=== PATIENT | male | born 1960 | race Caucasian/White ===

== ENCOUNTER 2016-11-13 15:12 | Inpatient (IN) | payer MEDICAID, OTHER ==
[~2016-11-13] VITALS: Ht 154.9 cm; Wt 75.7 kg
[2016-11-13 15:27] VITALS: BP 157/94
--- NOTE | 2016-11-13 15:30 | NUR ---
PATIENT TO BED 7.
--- NOTE | 2016-11-13 15:40 | NUR ---
Patient sent to us by his PMD, patient states he has no medical HX, takes no meds, presents with extreemly distended abd, full body jaundice, denies any CP, but does have some SOB, denies smoking, stats he has an occasional alchoholic beverage. Patient is resting in bed at this time, sitting up with both bed rails up.
--- NOTE | 2016-11-13 15:50 | NUR ---
Dr. Chisholm at bedside
--- NOTE | 2016-11-13 16:25 | NUR ---
CALL OUT TO DR. AYDEN MEDEIROS
--- NOTE | 2016-11-13 17:04 | NUR ---
Pt report given to Ton. Transfer of care at this time.
--- NOTE | 2016-11-13 17:06 | NUR ---
Ultrasound at bedside
--- NOTE | 2016-11-13 17:12 | NUR ---
Notified Dr. Chisholm of critical lab Troponin 0.108
[2016-11-13] MEDS ORDERED: ECOTRIN 81 MG TABEC PO ONE (17:15)
[2016-11-13] MEDS ORDERED: ECOTRIN 81 MG TABEC PO SCH (17:30)
[2016-11-13] MEDS ORDERED: MORPHINE SULFATE 4 MG/ML SYR IVP PRN (17:40)
[2016-11-13] MEDS ORDERED: ACETAMINOPHEN 325 MG TAB PO PRN (17:40)
[2016-11-13] MEDS ORDERED: ONDANSETRON 4 MG/2 ML VIAL IVP PRN (17:40)
[2016-11-13] MEDS ORDERED: MORPHINE SULFATE 2 MG/ML SYR IVP PRN (17:40)
--- NOTE | 2016-11-13 17:45 | NUR ---
Patient transfered to [facility]
--- NOTE | 2016-11-13 17:45 | NUR ---
Ultrasound complted at bedside
[2016-11-13 18:00] VITALS: BP 143/81
--- NOTE | 2016-11-13 18:00 | NUR ---
RECEIVED PATIENT FROM ER WITH CHIEF COMPLAINING OF ABD AND BLE SWELLING. PATIENT APPEARED TO BE CALM, AWAKE AND RESTING WELL. AAOX4 ITALIAN SPEAKING. NO SIGN OF DISTRESS NOTED AT THIS TIME. PATIENT STATED FEELING MILD SOB. O2 SAT 98% ON ROOM AIR. VSS. INITIAL ASSESSMENT DONE. PATIENT SKIN INTACT. PATIENT HAS RASH TO BILATERAL GROIN. MRSA SWAB DONE. PATIENT DENIED ANY PAIN OR CHEST DISCOMFORT. PATIENT HAS +1 EDEMA TO BLE. ABD DISTENDED AND FIRM NOTED. PATIENT HAS IV 20G TO LEFT AC INTACT AND FLUSHED WELL. PLAN OF CARE, PAIN MANAGEMENT AND MEDICATION REGIMENTS DISCUSSED, PATIENT AND HIS VERBALIZED UNDERSTANDING. PATIENT AMBULATORY. CALL LIGHT WITHIN REACH. WILL CONTINUE TO MONITOR.
--- NOTE | 2016-11-13 18:30 | NUR ---
DR GRAY COVERED FOR DR GALLEGOS EXPLAINED TO PATIENT REGARDING CT OF CHEST WITH CONTRAST PROCEDURE TO RULE OUT PE AND ITS RISKS AND BENEFITS THROUGH TELEPHONE, PATIENT VERBALIZED UNDERSTANDING, NURSE IZAIAH SYED RN WITNESSED AT BEDSIDE. CONSENT FORM FOR CHEST CT WITH CONTRAST SIGNED BY PATIENT AND ER DR GAMBOA ALSO SIGNED THE CONSENT.
[2016-11-13] MEDS ORDERED: PHYTONADIONE 10 MG/ML AMP SUBQ SCH (18:55)
[2016-11-13] MEDS ORDERED: SPIRONOLACTONE 50 MG TAB PO SCH (18:55)
--- NOTE | 2016-11-13 19:18 | NUR ---
ENDORSED PATIENT CURRENT PLAN OF CARE TO NIGHT NURSE JAIRO LVN. PATIENT RESTING IN BED WITH NO SIGN OF DISTRESS NOTED. Addendum: 11/13/16 at 1918 by Ton Collins RN NURSE ACE BERTRAND INSTEAD OF NURSE JAIRO BERGER.
--- NOTE | 2016-11-13 19:30 | NUR ---
RECEIVED PT FROM RAUL BERTRAND PT [place] SPEAKER AAOX4 AMBULATORY ON TELEMETRY SR, HL ON LEFT AC PATENT ASCITIS ABD VERY DISTENDED, EDEMA3+ BLE RASH ON INGUINAL AREA AND INTER THIGH, DR Denis BURTON IS HERE AND SEE THE PT PT IS ORIENTED TO THE FLOOR CALL LIGHT WITHIN REACH, RELATIVES AT BED SIDE.
[2016-11-13 20:00] VITALS: BP 131/79
[2016-11-13] MEDS ORDERED: PNEUMOCOCCAL VACCINE 23 MCG/0.5 ML VIAL IMVAC SCH (20:00)
--- NOTE | 2016-11-13 22:00 | NUR ---
PT CAME BACK FOR CT ABD
[2016-11-13] MEDS: LACTULOSE 20 GM/30 ML UDC PO SCH (22:07)
[2016-11-14] VITALS (7 sets, daily range): BP systolic 93–135; BP diastolic 52–81
--- NOTE | 2016-11-14 | NUR ---
PT RESTING ON BED VOIDING WELL , REPOSITIONED ASCITS, ON TELEMETRY ST
[2016-11-14] MEDS: LORazepam 1 MG TAB PO SCH ×3 (00:03→12:26)
[2016-11-14] MEDS ORDERED: MILD SOAP AND WATER TP PRN (01:15)
[2016-11-14] MEDS ORDERED: INTERDRY CLOTH TP SCH (01:15)
--- NOTE | 2016-11-14 04:00 | NUR ---
SPONGE BATH GIVEN LINEN CHANGED, AMBULATES TO THE RESTROOM DENIES ANY PAIN ON TELE SR
--- NOTE | 2016-11-14 06:00 | NUR ---
PT SLEEPING ATIVAN NOT GIVEN , ON TELE SR NOT DISTRESS NOTED AT THIS TIME
--- NOTE | 2016-11-14 07:00 | NUR ---
PATIENT CURRENT PLAN OF CARE HAS BEEN REVIEWED WITH NURSE JIGNA BERGER.
--- NOTE | 2016-11-14 07:18 | NUR ---
ASSUMED CONTINUITY OF CARE. NO SIGNS AND SYMPTOMS OF ACUTE DISTRESS NOTICED. INITIAL ASSESSMENT DONE. FAMILY MEMBER -HOPE ADAN ON BEDSIDE. HOB ELEVATED. KEEP COMFORTABLE ON BED. EXPLAINED DIAGNOSIS, PLAN OF CARE, PAIN MANAGEMENT TEACHING, USE OF CALL LIGHT/BED/TV/BATHROOM. VERBALIZED UNDERSTANDING. CALL LIGHT WITHIN REACH.
--- NOTE | 2016-11-14 08:00 | NUR ---
Patient's Plan of Care was discussed and reviewed with FIELD MARKETING TEAM LEADER: JIGNA
[2016-11-14] MEDS ORDERED: ASPIRIN 81 MG TAB.CHEW PO SCH (09:00)
[2016-11-14] MEDS ORDERED: FUROSEMIDE 40 MG/4 ML VIAL IVP SCH (09:00)
[2016-11-14] MEDS ORDERED: INFLUENZA VIRUS VACCINE QUAD 0.5 ML SYR IMVAC SCH (09:00)
[2016-11-14] MEDS: LACTULOSE 20 GM/30 ML UDC PO SCH ×2 (09:09→21:09)
[2016-11-14] MEDS: POTASSIUM CHLORIDE 20% 40 MEQ/15 ML UDC GT SCH ×3 (09:09→17:27)
[2016-11-14] MEDS: PROPRANOLOL 20 MG TAB PO SCH ×3 (09:10→17:27)
[2016-11-14] MEDS: SPIRONOLACTONE 50 MG TAB PO SCH (09:11)
[2016-11-14] MEDS: THIAMINE 100 MG TAB PO SCH (09:11)
--- NOTE | 2016-11-14 09:13 | NUR ---
PATIENT HAS BEEN SCREENED AND CATEGORIZED MODERATE NUTRITION RISK. PATIENT WILL BE SEEN WITHIN 3-5 DAYS OF ADMISSION. 11/16/16-11/18/[address]
[2016-11-14] MEDS: FUROSEMIDE 40 MG/4 ML VIAL IVP SCH ×2 (09:30→17:42)
--- NOTE | 2016-11-14 12:30 | NUR ---
DR. FARIAS CAME, SEEN PT., AND CHECKED PT. CHART.
[2016-11-14] MEDS ORDERED: PHYTONADIONE 10 MG/ML AMP SUBQ SCH (12:45)
--- NOTE | 2016-11-14 14:15 | NUR ---
DR. GALLEGOS CAME, INFORMED OF PT. CRITICAL LAB RESULTS OF TROP 0.117 AND ABILIO DÍAZ WAS MADE AWARE AND NO ORDER RECEIVED.
--- NOTE | 2016-11-14 14:22 | NUR ---
USED NexSteppe WITH CONVERTIBLE SOFA BEDSPRING TESTER #[id number], EXPLAINED ABOUT DR. FARIAS ORDER OF US GUIDED PARACENTESIS AND ASKED FOR QUESTION OR CONCERN REGARDING PROCEDURE. PT. VERBALIZED UNDERSTANDING AND NO QUESTION OR CONCERN RECEIVED. INFORMED CHARGE NURSE KATARINA HANKINS.
[2016-11-14] MEDS ORDERED: NYSTATIN CRE 100 MU/GM 15 GM TUBE TP SCH (14:25)
[2016-11-14] MEDS ORDERED: LORazepam 2 MG/ML VIAL IM/IVP PRN (14:35)
--- NOTE | 2016-11-14 15:23 | NUR ---
FAXED REVIEW TO [facility] FAX#[phone] PH# JORGE [phone]
--- NOTE | 2016-11-14 17:20 | NUR ---
TEMP 99.2 TEMPORAL SCAN, BP 113/63, HR 67, RESP 18, O2 SAT 98% ON ROOM AIR. NO C/O PAIN. WILL GIVE SCHEDULE MEDICINE PER MD ORDER.
--- NOTE | 2016-11-14 19:16 | NUR ---
BEDSIDE REPORT GIVEN TO ZOFIA BELL -JERZY. IN STABLE CONDITION. ALSO ENDORSED ABOUT MD ORDER OF US GUIDED PARACENTESIS.
--- NOTE | 2016-11-14 19:20 | NUR ---
RECEIVED REPORT FROM ZO BERGER, PATIENT IS AAOX4 THAI SPEAKING, PATIENT IS RESTING IN BED, PATIENT HAS IV TO LAC #20 PATENT, PATIENT HAS DISTENDED ABDOMEN WITH BLE EDEMA NOTED. PATIENT HAS A PERINEAL RASH. DISCUSSED PLAN OF CARE WITH PATIENT, PATIENT VERBALIZED UNDERSTANDING. CALL LIGHT WITHIN REACH. WILL CONTINUE TO MONITOR.
--- NOTE | 2016-11-14 21:12 | NUR ---
PM MED GIVEN, PATIENT TOLERATED WELL,CALL LIGHT WITHIN REACH. WILL CONTINUE TO MONITOR.
--- NOTE | 2016-11-14 22:37 | NUR ---
PATIENT WAS NOT IN ROOM PER PRISON CLASSIFICATION COUNSELOR, OTHER PATIENT TO BED A SAID PATIENT WALKED OUT. PATIENT WAS FOUND TO BE TAKING A SHOWER. WILL CONTINUE TO MONITOR.
--- NOTE | 2016-11-14 22:57 | NUR ---
PATIENT OUT OF SHOWER, BACK IN ROOM, IV INTACT, PATIENT RECONNECTED TO TELE MONITOR. CALL LIGHT WITHIN REACH. WILL CONTINUE TO MONITOR.
[2016-11-15] VITALS: BP 107/62
--- NOTE | 2016-11-15 | NUR ---
PATIENT SLEEPING, NO SOB OR SIGN OF DISTRESS, CALL LIGHT WITHIN REACH. WILL CONTINUE TO MONITOR.
--- NOTE | 2016-11-15 01:08 | NUR ---
VITAL SIGNS STABLE, PATIENT RESTING, NO SOB OR SIGN OF DISTRESS, CALL LIGHT WITHIN REACH. WILL CONTINUE TO MONITOR.
--- NOTE | 2016-11-15 02:00 | NUR ---
PATIENT SLEEPING, NO SOB OR SIGN OF DISTRESS, CALL LIGHT WITHIN REACH. WILL CONTINUE TO MONITOR.
[2016-11-15 04:00] VITALS: BP 98/48
--- NOTE | 2016-11-15 04:26 | NUR ---
VITAL SIGNS STABLE, PATIENT SLEEPING NO SOB OR SIGN OF DISTRESS, CALL LIGHT WITHIN REACH. WILL CONTINUE TO MONITOR.
--- NOTE | 2016-11-15 06:09 | NUR ---
PATIENT SLEEPING, NO SOB OR SIGN OF DISTRESS, CALL LIGHT WITHIN REACH. WILL CONTINUE TO MONITOR.
--- NOTE | 2016-11-15 07:10 | NUR ---
ENDORSED PATIENT TO DAY VAULT CLERK AT BEDSIDE, PATIENT IN STABLE CONDITION
--- NOTE | 2016-11-15 07:11 | NUR ---
ASSUMED CONTINUITY OF CARE. NO SIGNS AND SYMPTOMS OF ACUTE DISTRESS NOTED. INITIAL ASSESSMENT DONE. HOB ELEVATED. KEEP COMFORTABLE ON BED. EXPLAINED DIAGNOSIS, PLAN OF CARE, PAIN MANAGEMENT TEACHING, USE OF CALL LIGHT/BED/TV/BATHROOM. VERBALIZED UNDERSTANDING. CALL LIGHT WITHIN REACH.
[2016-11-15 08:00] VITALS: BP 113/66
--- NOTE | 2016-11-15 08:00 | NUR ---
Patient's Plan of Care was discussed and reviewed with TISSUE PACKER: TRISTAN BROWN
--- NOTE | 2016-11-15 08:01 | NUR ---
CALLED WILL FROM RADIOLOGY REGARDING MD ORDER OF US GUIDED PARACENTESIS. PER WILL FROM RADIOLOGY NO AVAILABLE STAFF YET TO DO PROCEDURE. INFORMED CHARGE NURSE GRACE HANKINS.
[2016-11-15] MEDS ORDERED: PANTOPRAZOLE 40 MG INJ VIAL IVP SCH (09:00)
[2016-11-15] MEDS: THIAMINE 100 MG TAB PO SCH (09:12)
[2016-11-15] MEDS: POTASSIUM CHLORIDE 20% 40 MEQ/15 ML UDC GT SCH (09:12)
[2016-11-15] MEDS: LACTULOSE 20 GM/30 ML UDC PO SCH ×2 (09:12→20:20)
[2016-11-15] MEDS: SPIRONOLACTONE 50 MG TAB PO SCH ×2 (09:13→20:20)
[2016-11-15] MEDS: PROPRANOLOL 20 MG TAB PO SCH ×3 (09:13→17:00)
[2016-11-15] MEDS: FUROSEMIDE 40 MG/4 ML VIAL IVP SCH (09:45)
[2016-11-15 12:00] VITALS: BP 103/64
--- NOTE | 2016-11-15 12:05 | NUR ---
CM NOTE FAXED REVIEW TO [facility] FAX# [phone] ATTN: JORGE # [phone]
[2016-11-15] MEDS: POTASSIUM CHLORIDE 20% 40 MEQ/15 ML UDC PO SCH ×2 (13:02→17:28)
--- NOTE | 2016-11-15 13:10 | NUR ---
DR. RESENDEZ CAME FOR PT. US GUIDED PARACENTESIS. PT. RESTING ON BED COMFORTABLY.
--- NOTE | 2016-11-15 14:30 | NUR ---
INFORMED JHOAN MCKAY WHO WAS AT [facility] NURSE STATION AT THIS TIME OF US GUIDED PARACENTESIS OUTPUT OF 5.5 LITER.
[2016-11-15] MEDS ORDERED: ALBUMIN HUMAN 25% 50 ML IV SCH (15:00)
[2016-11-15] MEDS ORDERED: PHYTONADIONE 10 MG/ML AMP SUBQ SCH (15:22)
[2016-11-15 16:00] VITALS: BP 109/63
--- NOTE | 2016-11-15 19:13 | NUR ---
REPORT GIVEN TO ZOFIA HANKINS. IN STABLE CONDITION.
--- NOTE | 2016-11-15 19:15 | NUR ---
RECEIVED REPORT FROM ZO BERGER, PATIENT IS AAO X4, PATIENT RESTING IN BED WITH FAMILY MEMBER AT BEDSIDE. PATIENT IS ON ROOM AIR, PATIENT HAS IV TO LAC#20 PATENT AND INTACT SL, NOTED PATIENT HAS DISTENDED ABDOMEN AND BLE EDEMA WITH PITTING. PATIENT HAS BANDAGE TO LOWER RIGHT ABDOMEN S/P PARACENTESIS. PATIENT IS ON FLUID RESTRICTION OF 1.5L/DAY. DISCUSSED PLAN OF CARE WITH PATIENT, PATIENT VERBALIZED UNDERSTANDING, CALL LIGHT WITHIN REACH. WILL CONTINUE TO MONITOR.
[2016-11-15 20:00] VITALS: BP 108/64
[2016-11-15] MEDS: NYSTATIN CRE 100 MU/GM 15 GM TUBE TP SCH (20:21)
--- NOTE | 2016-11-15 20:23 | NUR ---
PM MEDS GIVEN, PATIENT TOLERATED WELL, CALL LIGHT WITHIN REACH. WILL CONTINUE TO MONITOR.
--- NOTE | 2016-11-15 21:15 | NUR ---
PATIENT'S BANDAGE TO ABDOMEN SATURATED, CHANGED BANDAGE AND REPLACED WET CHUX WITH DRY, PROVIDED PATIENT WITH NEW GOWN. WILL CONTINUE TO MONITOR.
--- NOTE | 2016-11-15 23:00 | NUR ---
PATIENT SLEEPING, NO SOB OR SIGN OF DISTRESS, CALL LIGHT WITHIN REACH. WILL CONTINUE TO MONITOR.
[2016-11-16] VITALS: BP 95/63
--- NOTE | 2016-11-16 02:00 | NUR ---
PATIENT SLEEPING, NO SOB OR SIGN OF DISTRESS, CALL LIGHT WITHIN REACH. WILL CONTINUE TO MONITOR.
[2016-11-16 04:00] VITALS: BP 102/61
--- NOTE | 2016-11-16 04:43 | NUR ---
VITAL SIGNS STABLE, PATIENT RESTING IN BED, PATIENT SIGNED CONSENT FOR EGD PROCEDURE TO BE DONE TODAY. FILED IN CHART. NO SOB OR SIGN OF DISTRESS, CALL LIGHT WITHIN REACH. WILL CONTINUE TO MONITOR.
--- NOTE | 2016-11-16 07:15 | NUR ---
ENDORSED PATIENT TO DAY RN AT BEDSIDE, PATIENT IN STABLE CONDITION
--- NOTE | 2016-11-16 07:16 | NUR ---
RECEIVED REPORT FROM THE PROGRAMMER NUMERICAL CONTROL NURSE AT BEDSIDE. PT IS SLEEPING. DID NOT WANT TO DISTURB. NO SIGNS OF DISTRESS. GIRLFRIEND AT BEDSIDE, SLEEPING WELL. WILL BE BACK TO ASSESS PT.
[2016-11-16 08:00] VITALS: BP 113/65
--- NOTE | 2016-11-16 08:05 | NUR ---
PT IS AWAKE AND ORIENTED. I INTRODUCED MYSELF. V/S WITHIN NORMAL RANGE. PT HAS NO PAIN AT THIS TIME. HE DOES C/O OF FLUID LEAKING FROM HIS ABDOMEN FROM THE PARACENTESIS YESTERDAY. I VERIFIED A SMALL HOLE AND IS LEAKING QUITE A GOOD AMOUNT OF FLUIDS. I CLEANED THE AREA, COVERED WITH STERILE GAUZE AND PUT ON A PRESSURE DRESSING. WILL CHECK LATER TO SEE IF STILL OOZING. PT IS TURKMEN SPEAKING WITH LITTLE BROKEN LAO. HIS ABDOMEN IS DISTENDED STILL DESPITE THE 1500 ML THAT WAS REMOVED YESTERDAY. NOTED THE IV ON L FA 20G SL. PT HAS BLE EDEMA PITTING +2. NOTED THE RASH ON BILATERAL GROIN. ANSWERED ALL QUESTIONS. UPDATED THE BOARD. WILL CONTINUE TO MONITOR PT. GIRLFRIEND STILL AT BEDSIDE.
[2016-11-16] MEDS: SPIRONOLACTONE 50 MG TAB PO SCH ×2 (08:23→20:39)
[2016-11-16] MEDS: THIAMINE 100 MG TAB PO SCH (08:24)
[2016-11-16] MEDS: PROPRANOLOL 20 MG TAB PO SCH ×3 (08:24→17:00)
[2016-11-16] MEDS: FUROSEMIDE 40 MG TAB PO SCH (08:24)
[2016-11-16] MEDS: POTASSIUM CHLORIDE 20% 40 MEQ/15 ML UDC PO SCH ×3 (08:25→17:13)
[2016-11-16] MEDS: LACTULOSE 20 GM/30 ML UDC PO SCH ×2 (08:25→20:39)
[2016-11-16] MEDS: NYSTATIN CRE 100 MU/GM 15 GM TUBE TP SCH ×2 (08:26→20:38)
--- NOTE | 2016-11-16 08:30 | NUR ---
ADMINISTERED ALL MORNING MEDS. PT TOLERATED WELL. WILL CONTINUE TO MONITOR. HE HAD A BM THIS MORNING. I ASKED IF HE HAD LEFT ME A SAMPLE. NO HAT IN PLACE FROM GIS MANAGER. WILL PLACE ONE THERE AND COLLECT ANOTHER SAMPLE IF POSSIBLE. CALL LIGHT WITHIN REACH. WILL CONTINUE TO MONITOR PT.
--- NOTE | 2016-11-16 10:02 | NUR ---
PT RESTING COMFORTABLY WITH GIRLFRIEND AT BEDSIDE. NO SIGNS OF DISTRESS. NO COMPLAINTS. WILL CONTINUE TO MONITOR.
[2016-11-16 12:00] VITALS: BP 106/55
--- NOTE | 2016-11-16 12:53 | NUR ---
THE OR NURSES PICKED HIM UP AND TOOK PT FOR EGD. PT IS STABLE. PREPARED TICKET TO RIDE.
[2016-11-16] MEDS ORDERED: fentaNYL 0.05 MG/ML VIAL ONE (13:05)
[2016-11-16] MEDS ORDERED: MIDAZOLAM 2 MG/2 ML VIAL ONE (13:06)
[2016-11-16] MEDS ORDERED: diphenhydrAMINE 50 MG/ML VIAL ONE (13:06)
--- NOTE | 2016-11-16 13:15 | NUR ---
Nataly PATEL CM FROM [facility] ONSITE AND VERBAL UPDATED PROVIDED. CONCURRENT REVIEW ALSO FAXED TO [facility] [phone]
--- NOTE | 2016-11-16 13:50 | NUR ---
PT CAME BACK ONTO THE FLOOR WITH THE ER NURSE, JOSH. PER NURSE, PT TOLERATED PROCEDURE WELL. V/S ARE STABLE. 97.7F; 95/53; 60; 97%. PT HAS NO COMPLAINTS AT THIS TIME. ALL SAFETY MEASURES IN PLACE. WILL CONTINUE TO MONITOR PT.
--- NOTE | 2016-11-16 14:30 | NUR ---
PT IS HUNGRY. ORDERED A FULL LIQUID DIET. WILL ORDER A LATE TRAY FOR HIM.
--- NOTE | 2016-11-16 14:51 | NUR ---
TRAY HERE. PT IS SITTING UP AND EATING. WILL CONTINUE TO MONITOR PT. ALL SAFETY MEASURES MET.
[2016-11-16 16:00] VITALS: BP 102/59
--- NOTE | 2016-11-16 17:00 | NUR ---
CHANGED HIS ABDOMINAL DRESSING. IT IS SOAKED. DR. JENKINS SUGGESTED I USE A COLOSTOMY BAG TO COLLECT THE FLUID. THE PRESSURE BANDAGE IS GOOD BUT IT WILL CONTINUE TO GET SOAKED PER MD. PT TOLERATED THE PROCEDURE WELL.
--- NOTE | 2016-11-16 19:04 | NUR ---
ENDORSED PT TO THE UNION CONTRACT REPRESENTATIVE NURSE AT BEDSIDE FOR CONTINUITY OF CARE. PT IS SLEEPING.
--- NOTE | 2016-11-16 19:05 | NUR ---
RECEIVED REPORT FROM JERZY DOOLEY AT BEDSIDE. PT AAOX4. PT HAS IV TO LEFT FOREARM G 20 SL, ASYMPTOMATIC, PATENT AND INTACT. PT HAS A RASH ON PERINEAL AREA. PT HAS BILATERAL LOWER EDEMA. PT IS ON STRICT I & O'S 1500 ML. PT INSTRUCTED TO VOID IN URINAL. PT STABLE. ORIENTED PT TO ROOM AND SURROUNDINGS AND USE OF CALL LIGHT. PT VERBALIZES UNDERSTANDING. WILL CONTINUE TO MONITOR PT.
[2016-11-16 20:00] VITALS: BP 101/62
--- NOTE | 2016-11-16 20:43 | NUR ---
PT TOLERATED 2100 MEDS WELL.
--- NOTE | 2016-11-16 20:51 | NUR ---
PT IS LEAKING FROM PARACENTESIS. OUTPUT 100ML. WILL CONTINUE TO MONITOR PT.
--- NOTE | 2016-11-16 23:30 | NUR ---
PT SLEEPING COMFORTABLY AT THIS TIME, NO SIGNS OF DISTRESS NOTED. CALL LIGHT WITHIN REACH.
[2016-11-17] VITALS: BP 107/61
--- NOTE | 2016-11-17 01:26 | NUR ---
PT STABLE, PT WATCHING TV. CALL LIGHT WITHIN REACH.
--- NOTE | 2016-11-17 03:22 | NUR ---
PT USING URINAL AT THIS TIME. PT DENIES PAIN. CALL LIGHT WITHIN REACH.
[2016-11-17 04:00] VITALS: BP 99/65
--- NOTE | 2016-11-17 05:47 | NUR ---
PT TOLERATED 0630 MED WELL, WILL CONTINUE TO MONITOR PT.
[2016-11-17] MEDS ORDERED: PANTOPRAZOLE 40 MG TABEC PO SCH (06:30)
--- NOTE | 2016-11-17 07:20 | NUR ---
ENDORSED PT IN STABLE CONDITION TO JERZY MIRELES FOR CONTINUITY OF CARE.
--- NOTE | 2016-11-17 07:30 | NUR ---
RECEIVED REPORT FROM THE BLISTER PACKING MACHINE TENDER NURSE DENNY AT BEDSIDE. PATIENT IS AWAKE, ALERT, ORIENTEDX4. IV ON THE LEFT FOREARM, INTACT, AND PATENT. INITIAL ASSESSMENT DONE. STOMACH DISTENDED, COLOSTOMY BAG IN PLACED ON THE PARACENTESIS SITE. REDNESS ON THE PERINEAL AREA. BILATERAL LOWER EXTREMITIES EDEMA. VITAL TAKEN AND WITHIN THE NORMAL LIMIT. SAFETY MEASURE CHECKED AND WILL CONTINUE TO MONITOR. CALL LIGHT WITHIN REACH.
[2016-11-17 07:57] VITALS: BP 114/71
[2016-11-17] MEDS ORDERED: ATORVASTATIN 20 MG TAB PO SCH (09:00)
--- NOTE | 2016-11-17 09:00 | NUR ---
DUE MEDS GIVE, PATIENT TOLERATED WELL. CALL LIGHT WITHIN REACH.
[2016-11-17] MEDS: SPIRONOLACTONE 50 MG TAB PO SCH (09:11)
[2016-11-17] MEDS: THIAMINE 100 MG TAB PO SCH (09:12)
[2016-11-17] MEDS: PROPRANOLOL 20 MG TAB PO SCH ×2 (09:12→12:53)
[2016-11-17] MEDS: LACTULOSE 20 GM/30 ML UDC PO SCH (09:12)
[2016-11-17] MEDS: FUROSEMIDE 40 MG TAB PO SCH (09:12)
[2016-11-17] MEDS: POTASSIUM CHLORIDE 20% 40 MEQ/15 ML UDC PO SCH ×2 (09:13→12:52)
[2016-11-17] MEDS: NYSTATIN CRE 100 MU/GM 15 GM TUBE TP SCH (09:21)
--- NOTE | 2016-11-17 10:32 | NUR ---
PATIENT RESTING IN BED. NO COMPLAINED OF ANY PAIN. NO S/S OF DISTRESS WILL CONTINUE TO MONITOR. CALL LIGHT WITHIN REACH.
[2016-11-17 11:22] VITALS: BP 114/71
[2016-11-17 11:35] VITALS: BP 114/71
[2016-11-17 12:00] VITALS: BP 114/60
--- NOTE | 2016-11-17 12:00 | NUR ---
VITALS TAKEN AND WITHIN THE NORMAL LIMIT. DENIED PAIN. CALL LIGHT WITHIN REACH.
[2016-11-17] MEDS ORDERED: VITAMIN B1100 MG/ML PO (12:22)
[2016-11-17] MEDS ORDERED: B-1100 M1 PO (12:22)
[2016-11-17] MEDS ORDERED: ALDACTONE50 MG PO (12:26)
[2016-11-17] MEDS ORDERED: INDERAL20 M1 PO (12:28)
[2016-11-17] MEDS ORDERED: PROTONIX TR40 M1 PO (12:29)
[2016-11-17] MEDS ORDERED: LASIX40 M1 PO (12:31)
[2016-11-17] MEDS ORDERED: LIPITOR20 MG PO (12:32)
--- NOTE | 2016-11-17 13:14 | NUR ---
DISCHARGED INSTRUCTION, FOLLOW UP APPOINTMENT, AND PRESCRIPTION GIVEN TO PATIENT. IV REMOVED AND END INTACT. PATIENT SIGNED ALL DISCHARGED PAPER.
--- NOTE | 2016-11-17 14:40 | NUR ---
ASSISTED PATIENT TO THE LOBBY D/C TO HOME WITH FAMILY. IN STABLE CONDITION.
== END 2016-11-17 14:40 | disposition home or self-care (01) | DRG 950 ==
LOC: MED 15:12 → MTU 16:51
PROVIDERS: ADMIT Hospitalist; ATTEND Hospitalist
PROC: 0W9G30Z Drainage of Peritoneal Cavity with Drainage Device, Percutaneous Approach (ICD-10-PCS; 2016-11-15)
PROC: 06L34CZ Occlusion of Esophageal Vein with Extraluminal Device, Percutaneous Endoscopic Approach (ICD-10-PCS; principal; 2016-11-16 13:00)
PROC: 0DB78ZX Excision of Stomach, Pylorus, Via Natural or Artificial Opening Endoscopic, Diagnostic (ICD-10-PCS; 2016-11-16 13:00)
DX: K70.31 Alcoholic cirrhosis of liver with ascites (principal); I21.4 Non-ST elevation (NSTEMI) myocardial infarction; D68.4 Acquired coagulation factor deficiency; I85.10 Secondary esophageal varices without bleeding; E87.8 Other disorders of electrolyte and fluid balance, not elsewhere classified; K76.6 Portal hypertension; K72.00 Acute and subacute hepatic failure without coma; F10.20 Alcohol dependence, uncomplicated; Y90.1 Blood alcohol level of 20-39 mg/100 ml; R00.0 Tachycardia, unspecified; D53.9 Nutritional anemia, unspecified